=== PATIENT | female | born 1965 | race Two or more races ===

== ENCOUNTER 2023-08-24 13:29 | Emergency (ER) | payer OTHER ==
[~2023-08-24] VITALS: Ht 167.6 cm; Wt 107.0 kg
[2023-08-24 13:45] VITALS: BP 147/94; O2SAT 97
[2023-08-24 14:39] LABS: HEMATOCRIT. 36.7 % (36.0-48.0); HEMOGLOBIN. 12.2 g/dL (12.0-16.0); LYMPHOCYTES % 28.5 % (20.0-50.0); MEAN CORPUSCULAR HEMOGLOBIN 27.6 pg (28.0-32.0); MEAN CORPUSCULAR HGB CONC 33.2 g/dL (31.0-37.0); MEAN CORPUSCULAR VOLUME 83.3 fL (81.0-99.0); MEAN PLATELET VOLUME 8.1 fl (7.4-10.4); MONOCYTES % 3.5 % (2.0-8.0); PLATELET 251 x1000/uL (130-400); RED BLOOD CELL COUNT 4.41 mill/uL (4.2-5.4); WHITE BLOOD COUNT 6.9 x1000/uL (4.5-11.0)
[2023-08-24 14:46] LABS: CHLORIDE 103 mEq/L (98-107); POTASSIUM 4.1 mEq/L (3.5-5.1); SODIUM 140 mEq/L (136-145)
[2023-08-24 14:47] LABS: CARBON DIOXIDE 32 mEq/L (21-32)
[2023-08-24 14:48] LABS: CALCIUM 9.9 mg/dL (8.7-10.4); PROTHROMBIN TIME 10.8 sec (9.6-11.0)
[2023-08-24 14:52] LABS: CREATININE 0.8 mg/dL (0.6-1.0)
[2023-08-24 14:53] LABS: GLUCOSE 163 mg/dL (70-105); UREA NITROGEN BLOOD 17 mg/dL (9-23)
[2023-08-24 14:54] LABS: ALANINE AMINOTRANSFERASE 13 IU/L (10-49); ALBUMIN 4.6 g/dL (3.2-4.8); ASPARTATE AMINOTRANSFERASE 15 IU/L (<34)
[2023-08-24 14:55] LABS: BILIRUBIN DIRECT 0.1 mg/dL (<=3.0); BILIRUBIN TOTAL 0.4 mg/dL (0.1-1.0); PROTEIN TOTAL 7.4 g/dL (6.0-8.3)
[2023-08-24 15:25] VITALS: PULSE 87; RESP 16; TEMP 97.6
== END 2023-08-24 15:25 | disposition home or self-care (01) ==
LOC: ER 13:52
DX: R53.1 Weakness (principal); I10 Essential (primary) hypertension; E11.9 Type 2 diabetes mellitus without complications
CPT/HCPCS: 36415; 71045; 80048; 80076; 85025; 99284